=== PATIENT | female | born 1980 | race Caucasian/White ===

== ENCOUNTER 2017-04-22 15:18 | Emergency (ER) | payer SELFPAY ==
[~2017-04-22] VITALS: Ht 160 cm; Wt 84.0 kg
[~2017-04-22 15:18] MED LIST: APAP; ASPIRIN EC81 MG PO; CARAFATE1 GM PO; CEPHALEXIN500 MG; CEPHALEXIN500 MG OR; CIPRO500 MG OR; CYCLOBENZAPR5 MG; DEPO-MEDROL80 MG/ML IM; ERY-TAB333 MG OR; ERYTHROMYCIN250 MG; FLEXERIL PO; FLEXERIL10 MG PO; FLEXERIL5 MG PO; HYDROCO; KETOROLAC60 MG/2 ML IJ; KETOROLAC60 MG/2 ML IM; LUNESTA2 M1; METOPROL TAR25 M1 PO; METOPROL TAR25 MG OR; MOTRIN800 MG PO; NAPROSYN500 MG PO; NAPROXEN500 MG PO; NO HOME MEDS; OXYCODONE-ACETAMINOP; PANTOPRAZOLE SO40 M1 PO; PERCOCET1 TA2; PRILOSEC40 MG PO; SOMA350 MG PO; TORADOL; TRAMADOL HCL50 MG; TRAMADOL HYDROC50 MG PO; TYLENOL # 31 TA1 PO; ULTRAM50 M1 PO; ULTRAM50 MG OR; VICODIN ES1 TAB OR; XANAX0.25 MG PO; ZITHROMAX250 MG PO
[2017-04-22] MEDS ORDERED: HYDROXYZ HCL25 MG PO (16:01)
[2017-04-22] MEDS ORDERED: LOPRESSOR 550 MG/TAB PO (16:02)
[2017-04-22] MEDS ORDERED: BUSPAR10 M1 PO (16:02)
[2017-04-22] MEDS ORDERED: MOTRIN800 MG PO (16:20)
[2017-04-22] MEDS ORDERED: TESSALON PER100 MG PO (16:20)
[2017-04-22] MEDS ORDERED: AFRIN 12 HOUR0.05 % (16:20)
[2017-04-22 16:55] LABS: INFLUENZA A POSITIVE (NONE DETECT); INFLUENZA B NONE DETECTED (NONE DETECT)
[2017-04-22] MEDS ORDERED: TAM75CAP PO (16:59)
[2017-04-22 17:28] VITALS: BP 130/89
== END 2017-04-22 17:28 | disposition home or self-care (01) | DRG 153 ==
LOC: ED 15:18
PROVIDERS: Emergency Medicine
DX: J11.1 Influenza due to unidentified influenza virus with other respiratory manifestations (principal); R05 Cough; R09.81 Nasal congestion; R50.9 Fever, unspecified; R52 Pain, unspecified

== ENCOUNTER 2017-08-04 07:36 | Emergency (ER) | payer SELFPAY ==
[~2017-08-04] VITALS: Ht 160 cm; Wt 85.0 kg
[~2017-08-04 07:36] MED LIST changes: +AFRIN 12 HOUR0.05 %; +BUSPAR10 M1 PO; +HYDROXYZ HCL25 MG PO; +LOPRESSOR 550 MG/TAB PO; +TAM75CAP PO; +TESSALON PER100 MG PO
[2017-08-04] MEDS ORDERED: DOXYCYC MONO100 M1 PO (08:06)
[2017-08-04] MEDS ORDERED: TORADOL PO (08:06)
[2017-08-04 08:41] VITALS: BP 118/77
== END 2017-08-04 08:42 | disposition home or self-care (01) | DRG 605 ==
LOC: ED 07:36
DX: S60.414A Abrasion of right ring finger, initial encounter (principal); I10 Essential (primary) hypertension; X58.XXXA Exposure to other specified factors, initial encounter

== ENCOUNTER 2018-08-12 23:50 | Emergency (ER) | payer OTHER ==
[~2018-08-12] VITALS: Ht 160 cm; Wt 80.0 kg
[~2018-08-12 23:50] MED LIST changes: +DOXYCYC MONO100 M1 PO; +TORADOL PO
[2018-08-13 01:29] LABS: HEMATOCRIT 40.3 % (37.0-47.0); HEMOGLOBIN 13.1 g/dl (12.0-16.0); IMMATURE GRANULOCYTES 0.2 % (0.0-5.0); MEAN CELL VOLUME 85.4 fL CALC (80.0-100.0); MEAN CORPUSCULAR HGB 27.8 pG CALC (26.0-32.0); MEAN CORPUSCULAR HGB CONC 32.5 g/L CALC (32.0-36.0); NEUT# 3.65 thou/uL (2.00-7.15); RED BLOOD COUNT 4.72 mill/uL (4.20-5.60); RED CELL DISTRI WIDTH 14.5 % (11.5-15.5)
[2018-08-13 01:30] LABS: URINE BILIRUBIN - DIPSTICK NEGATIVE (NEGATIVE); URINE BLOOD DIPSTICK NEGATIVE (NEGATIVE); URINE COLOR YELLOW; URINE GLUCOSE - DIPSTICK NEGATIVE (NEGATIVE); URINE KETONE NEGATIVE (NEGATIVE); URINE LEUK ESTERASE NEGATIVE (NEGATIVE); URINE NITRITE - DIPSTICK NEGATIVE (Negative); URINE PROTEIN - DIPSTICK NEGATIVE (NEG-TRACE); URINE SPECIFIC GRAVITY <=1.005; URINE UROBILINOGEN - DIPSTICK 0.2 E.U./dL (0.2)
[2018-08-13 01:43] LABS: ALBUMIN 4.8 g/dL (3.2-5.0); ALKALINE PHOSPHATASE 60 u/l (38-126); ANION GAP 20 (6-22 (CALC)); BILIRUBIN, TOTAL 0.2 mg/dL (0.0-1.4); BUN 14 mg/dL (7-17); BUN/CREATININE RATIO 19 (12-20 (CALC)); CARBON DIOXIDE 22 mmol/l (22-30); CHLORIDE 106 mmol/l (95-108); CREATININE 0.7 mg/dL (0.5-1.0); ETHYL ALCOHOL 281 mg/dl (0-30); GFR > 60 ML/MIN (>=60 (CALC)); GFR FOR AFR.AMER. > 60 ML/MIN (>=60 (CALC)); POTASSIUM 4.5 mmol/l (3.5-5.1); SGOT/AST 22 u/l (14-36); SODIUM 144 mmol/l (137-146); TOTAL PROTEIN 7.9 g/dL (6.3-8.2)
[2018-08-13] MEDS ORDERED: IBUPROFEN600 MG PO (03:27)
[2018-08-13] MEDS ORDERED: ORPHENADRINE C100 MG PO (03:27)
[2018-08-13 03:53] VITALS: BP 109/59
== END 2018-08-13 03:50 | disposition home or self-care (01) ==
LOC: ED 23:50
PROVIDERS: Emergency Medicine
DX: M54.5 Low back pain (principal); F10.129 Alcohol abuse with intoxication, unspecified; I10 Essential (primary) hypertension
CPT/HCPCS: Q9967

== ENCOUNTER 2020-05-19 16:15 | Emergency (ER) | payer SELFPAY ==
[~2020-05-19] VITALS: Ht 160 cm; Wt 85.0 kg
[~2020-05-19 16:15] MED LIST changes: +IBUPROFEN600 MG PO; +ORPHENADRINE C100 MG PO
[2020-05-19 17:35] VITALS: BP 111/67
== END 2020-05-19 17:15 | disposition left against medical advice (07) | DRG 951 ==
LOC: ED 16:15 → LWOBS 17:15
DX: Z53.21 Procedure and treatment not carried out due to patient leaving prior to being seen by health care provider (principal)

== ENCOUNTER 2021-12-02 09:17 | Emergency (ER) | payer MEDICAID ==
[~2021-12-02] VITALS: Ht 160 cm; Wt 69.3 kg
[2021-12-02] VITALS (7 sets, daily range): BP systolic 116–134; BP diastolic 73–95
[2021-12-02 10:10] LABS: HEMATOCRIT 38.8 % (37.0-47.0); HEMOGLOBIN 12.3 g/dl (12.0-16.0); IMMATURE GRANULOCYTES 0.3 % (0.0-5.0); MEAN CELL VOLUME 82.2 fL CALC (80.0-100.0); MEAN CORPUSCULAR HGB 26.1 pG CALC (26.0-32.0); MEAN CORPUSCULAR HGB CONC 31.7 g/dL CAL (32.0-36.0); NEUT# 12.07 thou/uL (2.00-7.15); RED BLOOD COUNT 4.72 mill/uL (4.20-5.60); RED CELL DISTRI WIDTH 16.1 % (11.5-15.5)
[2021-12-02 10:22] LABS: ALKALINE PHOSPHATASE 74 u/l (38-126); ANION GAP 10 (6-22 (CALC)); BILIRUBIN, TOTAL 0.2 mg/dL (0.0-1.4); BUN 13 mg/dL (7-17); BUN/CREATININE RATIO 18 (12-20 (CALC)); CARBON DIOXIDE 25 mmol/l (22-30); CHLORIDE 106 mmol/l (95-108); CREATININE 0.7 mg/dL (0.5-1.0); GFR FOR AFR.AMER. > 60 ML/MIN (>=60 (CALC)); GFR OTHER RACES > 60 ML/MIN (>=60 (CALC)); SGOT/AST 16 u/l (14-36); SODIUM 137 mmol/l (137-146); TOTAL PROTEIN 7.1 g/dL (6.3-8.2)
[2021-12-02] MEDS ORDERED: CEPHALEXIN500 M1 PO (11:32)
== END 2021-12-02 12:42 | disposition home or self-care (01) ==
LOC: ED 09:17
PROVIDERS: Family Medicine
DX: R07.89 Other chest pain (principal); D72.829 Elevated white blood cell count, unspecified; I10 Essential (primary) hypertension; F41.9 Anxiety disorder, unspecified; E78.5 Hyperlipidemia, unspecified; Z20.822 Contact with and (suspected) exposure to COVID-19

== ENCOUNTER 2021-12-27 14:45 | Emergency (ER) | payer MEDICAID ==
[~2021-12-27] VITALS: Ht 160 cm; Wt 66.6 kg
[2021-12-27] VITALS (25 sets, daily range): BP systolic 114–150; BP diastolic 68–104
[~2021-12-27 14:45] MED LIST changes: +CEPHALEXIN500 M1 PO
[2021-12-27] MEDS ORDERED: FLUOXETINE10 M2 PO (15:38)
[2021-12-27 15:55] LABS: HEMATOCRIT 35.2 % (37.0-47.0); HEMOGLOBIN 11.7 g/dl (12.0-16.0); IMMATURE GRANULOCYTES 0.1 % (0.0-5.0); MEAN CELL VOLUME 77.5 fL CALC (80.0-100.0); MEAN CORPUSCULAR HGB 25.8 pG CALC (26.0-32.0); MEAN CORPUSCULAR HGB CONC 33.2 g/dL CAL (32.0-36.0); NEUT# 8.46 thou/uL (2.00-7.15); RED BLOOD COUNT 4.54 mill/uL (4.20-5.60); RED CELL DISTRI WIDTH 16.7 % (11.5-15.5)
[2021-12-27 16:24] LABS: ALBUMIN 4.3 g/dL (3.2-5.0); ALKALINE PHOSPHATASE 87 u/l (38-126); ANION GAP 16 (6-22 (CALC)); BILIRUBIN, TOTAL 0.2 mg/dL (0.0-1.4); BUN 10 mg/dL (7-17); BUN/CREATININE RATIO 13 (12-20 (CALC)); CARBON DIOXIDE 20 mmol/l (22-30); CHLORIDE 112 mmol/l (95-108); CREATININE 0.8 mg/dL (0.5-1.0); ETHYL ALCOHOL 59 mg/dl (0-30); GFR FOR AFR.AMER. > 60 ML/MIN (>=60 (CALC)); GFR OTHER RACES > 60 ML/MIN (>=60 (CALC)); POTASSIUM 4.8 mmol/l (3.5-5.1); SGOT/AST 24 u/l (14-36); SODIUM 143 mmol/l (137-146); TOTAL PROTEIN 7.3 g/dL (6.3-8.2)
[2021-12-28 01:00] VITALS: BP 117/71
[2021-12-28 02:00] VITALS: BP 125/39
[2021-12-28 03:00] VITALS: BP 130/69
[2021-12-28 04:00] VITALS: BP 113/76
[2021-12-28 05:00] VITALS: BP 130/46
[2021-12-28 06:00] VITALS: BP 126/78
[2021-12-31 04:30] VITALS: BP 129/82
== END 2021-12-31 04:45 ==
LOC: ED 14:45
PROVIDERS: Family Medicine
DX: R45.851 Suicidal ideations (principal); F41.9 Anxiety disorder, unspecified; F32.A Depression, unspecified; I10 Essential (primary) hypertension; E78.5 Hyperlipidemia, unspecified; Z20.822 Contact with and (suspected) exposure to COVID-19; F17.210 Nicotine dependence, cigarettes, uncomplicated

== ENCOUNTER 2022-05-04 09:14 | Emergency (ER) | payer OTHER ==
[2022-05-04] VITALS (19 sets, daily range): BP systolic 117–182; BP diastolic 76–119
[~2022-05-04] VITALS: Ht 160 cm; Wt 80.0 kg
[~2022-05-04 09:14] MED LIST changes: +FLUOXETINE10 M2 PO
[2022-05-04 10:32] LABS: BASO% 0.7 % (0-3); EOS% 0.3 % (0-8); HEMATOCRIT 35.5 % (37.0-47.0); IMMATURE GRANULOCYTES 0.1 % (0.0-5.0); MEAN CELL VOLUME 80.5 fL CALC (80.0-100.0); MEAN CORPUSCULAR HGB 27.2 pG CALC (26.0-32.0); MEAN CORPUSCULAR HGB CONC 33.8 g/dL CAL (32.0-36.0); MONO% 4.2 % (2-13); NEUT# 7.81 thou/uL (2.00-7.15); NEUT% 74.7 % (42-76); RED BLOOD COUNT 4.41 mill/uL (4.20-5.60); RED CELL DISTRI WIDTH 15.7 % (11.5-15.5)
[2022-05-04 10:51] LABS: ALBUMIN 4.3 g/dL (3.2-5.0); ALKALINE PHOSPHATASE 85 u/l (38-126); BUN 13 mg/dL (7-17); BUN/CREATININE RATIO 20 (12-20 (CALC)); CARBON DIOXIDE 23 mmol/l (22-30); CHLORIDE 108 mmol/l (95-108); CREATININE 0.7 mg/dL (0.5-1.0); GFR FOR AFR.AMER. > 60 ML/MIN (>=60 (CALC)); GFR OTHER RACES > 60 ML/MIN (>=60 (CALC)); SGOT/AST 30 u/l (14-36); SODIUM 137 mmol/l (137-146); TOTAL PROTEIN 7.3 g/dL (6.3-8.2)
[2022-05-04 10:54] LABS: ANION GAP 10 (6-22 (CALC)); BILIRUBIN, TOTAL 0.6 mg/dL (0.0-1.4); POTASSIUM 3.7 mmol/l (3.5-5.1)
== END 2022-05-04 14:34 | disposition home or self-care (01) ==
LOC: ED 09:14
PROVIDERS: Family Medicine
DX: J11.1 Influenza due to unidentified influenza virus with other respiratory manifestations (principal); I10 Essential (primary) hypertension; F41.9 Anxiety disorder, unspecified; E78.5 Hyperlipidemia, unspecified; Z20.822 Contact with and (suspected) exposure to COVID-19

== ENCOUNTER 2022-06-20 22:57 | Emergency (ER) | payer OTHER ==
[~2022-06-20] VITALS: Ht 160 cm; Wt 75.9 kg
[2022-06-20 23:05] VITALS: BP 146/94
[2022-06-20 23:29] LABS: BASO% 0.6 % (0-3); EOS% 0.6 % (0-8); HEMATOCRIT 36.9 % (37.0-47.0); HEMOGLOBIN 11.9 g/dl (12.0-16.0); IMMATURE GRANULOCYTES 0.2 % (0.0-5.0); LYMPH% 35.2 % (15-41); MEAN CELL VOLUME 79.7 fL CALC (80.0-100.0); MEAN CORPUSCULAR HGB 25.7 pG CALC (26.0-32.0); MEAN CORPUSCULAR HGB CONC 32.2 g/dL CAL (32.0-36.0); MONO% 6.1 % (2-13); NEUT# 7.57 thou/uL (2.00-7.15); NEUT% 57.3 % (42-76); RED BLOOD COUNT 4.63 mill/uL (4.20-5.60); RED CELL DISTRI WIDTH 17.3 % (11.5-15.5)
[2022-06-20 23:41] LABS: ALBUMIN 4.7 g/dL (3.2-5.0); ALKALINE PHOSPHATASE 88 u/l (38-126); ANION GAP 17 (6-22 (CALC)); BUN 6 mg/dL (7-17); BUN/CREATININE RATIO 8 (12-20 (CALC)); CARBON DIOXIDE 19 mmol/l (22-30); CHLORIDE 111 mmol/l (95-108); CREATININE 0.7 mg/dL (0.5-1.0); GFR FOR AFR.AMER. > 60 ML/MIN (>=60 (CALC)); GFR OTHER RACES > 60 ML/MIN (>=60 (CALC)); MAGNESIUM 2.2 mg/dL (1.6-2.3); POTASSIUM 3.9 mmol/l (3.5-5.1); SGOT/AST 35 u/l (14-36); SODIUM 143 mmol/l (137-146); TOTAL PROTEIN 7.8 g/dL (6.3-8.2)
[2022-06-20 23:50] LABS: BILIRUBIN, TOTAL 0.2 mg/dL (0.02-1.3)
[2022-06-20 23:51] LABS: ETHYL ALCOHOL 336 mg/dl (0-30)
[2022-06-20] MEDS ORDERED: TRAZODONE50 MG PO (23:53)
[2022-06-20] MEDS ORDERED: XANAX0.5 MG PO (23:54)
[2022-06-20 23:55] LABS: URINE BILIRUBIN - DIPSTICK NEGATIVE (NEGATIVE); URINE BLOOD DIPSTICK NEGATIVE (NEGATIVE); URINE COLOR YELLOW; URINE GLUCOSE - DIPSTICK NEGATIVE (NEGATIVE); URINE KETONE NEGATIVE (NEGATIVE); URINE LEUK ESTERASE NEGATIVE (NEGATIVE); URINE PROTEIN - DIPSTICK NEGATIVE (NEG-TRACE); URINE SPECIFIC GRAVITY <=1.005; URINE UROBILINOGEN - DIPSTICK 0.2 E.U./dL (0.2)
[2022-06-20] MEDS ORDERED: FLUOXETINE40 MG PO (23:55)
[2022-06-20 23:56] LABS: URINE NITRITE - DIPSTICK NEGATIVE (Negative)
[2022-06-20] MEDS ORDERED: METOPROLOL TART50 MG PO (23:56)
[2022-06-21] VITALS (28 sets, daily range): BP systolic 80–118; BP diastolic 38–80
== END 2022-06-21 10:03 ==
LOC: ED 22:57
PROVIDERS: Family Medicine
DX: R45.851 Suicidal ideations (principal); F32.A Depression, unspecified; F10.129 Alcohol abuse with intoxication, unspecified; I10 Essential (primary) hypertension; F41.9 Anxiety disorder, unspecified; E78.5 Hyperlipidemia, unspecified; Y90.6 Blood alcohol level of 120-199 mg/100 ml; Z63.4 Disappearance and death of family member; Z20.822 Contact with and (suspected) exposure to COVID-19
CPT/HCPCS: J2060; S0166

== ENCOUNTER 2023-11-22 18:07 | Emergency (ER) | payer SELFPAY ==
[~2023-11-22] VITALS: Ht 160 cm; Wt 72.0 kg
[~2023-11-22 18:07] MED LIST changes: +FLUOXETINE40 MG PO; +METOPROLOL TART50 MG PO; +TRAZODONE50 MG PO; +XANAX0.5 MG PO
[2023-11-22] MEDS ORDERED: ZOFRAN4 MG/TAB PO (21:15)
[2023-11-22 21:45] VITALS: BP 142/78
== END 2023-11-22 21:50 | disposition home or self-care (01) | DRG 179 ==
LOC: ED 18:07
DX: U07.1 COVID-19 (principal); R09.81 Nasal congestion; R05.9 Cough, unspecified; J02.9 Acute pharyngitis, unspecified; R52 Pain, unspecified; I10 Essential (primary) hypertension; E78.5 Hyperlipidemia, unspecified; F41.9 Anxiety disorder, unspecified